=== PATIENT | male | born 1990 | race American Indian/Alaskan Native ===

== ENCOUNTER 2016-10-28 00:43 | Emergency (ER) | payer SELFPAY ==
[2016-10-28 00:56] VITALS: BP 151/101
== END 2016-10-28 03:48 | disposition left against medical advice (07) ==
LOC: ED 00:43
DX: G43.909 Migraine, unspecified, not intractable, without status migrainosus (principal); Z53.21 Procedure and treatment not carried out due to patient leaving prior to being seen by health care provider